=== PATIENT | female | born 1995 | race Caucasian/White ===

== ENCOUNTER 2022-01-24 17:30 | Outpatient (CLI) | payer OTHER ==
[~2022-01-24] VITALS: Ht 167.6 cm; Wt 72.5 kg
[2022-01-24] MEDS ORDERED: PRENTAB9 PO (18:02)
[2022-01-24] MEDS ORDERED: IRON325T9 PO (18:02)
[2022-01-24] MEDS ORDERED: CALC-265 PO (18:02)
[2022-01-24] MEDS ORDERED: PROZ20CA11 PO (18:02)
[2022-01-24] MEDS ORDERED: xyzal PO (18:02)
[2022-01-24] MEDS ORDERED: HOME MED LIST COMPLETE! XX SCH (18:05)
[2022-01-24 18:17] VITALS: BP 106/64
[2022-01-24 19:09] VITALS: BP 113/76
== END 2022-01-24 19:08 | disposition home or self-care (01) ==
LOC: M LDO 17:30
PROVIDERS: ATTEND Specialist
DX: O26.892 Other specified pregnancy related conditions, second trimester (principal); R04.0 Epistaxis; O99.342 Other mental disorders complicating pregnancy, second trimester; F41.9 Anxiety disorder, unspecified; Z3A.24 24 weeks gestation of pregnancy
CPT/HCPCS: 59025; G0378; G0463

== ENCOUNTER 2022-02-17 17:56 | Outpatient (CLI) | payer OTHER ==
[~2022-02-17] VITALS: Ht 167.6 cm; Wt 71.0 kg
[~2022-02-17 17:56] MED LIST: CALC-265 PO; IRON325T9 PO; PRENTAB9 PO; PROZ20CA11 PO; xyzal PO
[2022-02-17 18:13] VITALS: BP 118/67
[2022-02-17 18:18] VITALS: BP 115/66
[2022-02-17] MEDS ORDERED: FERR325T3 PO (18:18)
[2022-02-17] MEDS ORDERED: PRENTAB9 PO (18:18)
[2022-02-17] MEDS ORDERED: MORPHINE 4 MG/ML 1ML VIAL/SYRINGE IV ONE ×2 (18:35→20:45)
[2022-02-17] MEDS ORDERED: ONDANSETRON 4MG/2ML VIAL IV PRN (18:35)
[2022-02-17] MEDS ORDERED: LR 1,000 ML IV SCH (18:35)
[2022-02-17] MEDS ORDERED: LACTATED RINGER'S 1000 ML IV ONE (18:35)
[2022-02-17 19:03] LABS: HEMATOCRIT 35.5 % (36.0-47.0); HEMOGLOBIN 11.5 g/dl (12.0-15.5); MEAN CORPUSCULAR HEMOGLOBIN 27.5 pg (27.0-33.0); MEAN CORPUSCULAR HGB CONC 32.4 g/dl (32.0-36.5); MEAN CORPUSCULAR VOLUME 84.9 fl (80.0-96.0); PLATELET COUNT, AUTOMATED 317 10^3/uL (150-450); RED BLOOD COUNT 4.18 10^6/uL (4.00-5.40)
[2022-02-17 19:14] LABS: AMORPHOUS SEDIMENT SMALL (NEGATIVE); APPEARANCE, URINE TURBID (CLEAR); BACTERIA, URINE AUTO NEGATIVE (NEGATIVE); BILIRUBIN, URINE AUTO NEGATIVE (NEGATIVE); BLOOD, URINE BLOOD NEGATIVE (NEGATIVE); COLOR, URINE AMBER (YELLOW); GLUCOSE, URINE (UA) AUTO NEGATIVE (NEGATIVE); KETONE, URINE AUTO 1+ mg/dL (NEGATIVE); LEUKOCYTE ESTERASE, URINE AUTO NEGATIVE (NEGATIVE); MUCUS, URINE SMALL (NEGATIVE); NITRITE, URINE AUTO NEGATIVE (NEGATIVE); PROTEIN, URINE AUTO 1+ mg/dL (NEGATIVE); RBC, URINE AUTO 3 /HPF (0-3); SPECIFIC GRAVITY URINE AUTO 1.016 (1.002-1.035); SQUAMOUS EPITHELIAL CELL UR AU 2 /HPF (0-6); UROBILINOGEN, URINE AUTO 0.2 mg/dL (0.0-2.0); WBC, URINE AUTO 3 /HPF (0-3)
[2022-02-17 19:37] LABS: ALBUMIN 3.2 GM/DL (3.2-5.2); BLOOD UREA NITROGEN 7 MG/DL (7-18); CALCIUM LEVEL 10.7 MG/DL (8.5-10.1); CARBON DIOXIDE LEVEL 27 MEQ/L (21-32); CHLORIDE LEVEL 104 MEQ/L (98-107); CREATININE FOR GFR 0.62 MG/DL (0.55-1.30); GLOMERULAR FILTRATION RATE > 60.0 (>60); GLUCOSE, FASTING 94 MG/DL (70-100); PHOSPHORUS LEVEL 3.8 MG/DL (2.5-4.9); SODIUM LEVEL 141 MEQ/L (136-145)
[2022-02-17 20:00] VITALS: BP 138/80
[2022-02-17] MEDS ORDERED: PROMETHAZINE 25MG/ML 1ML VIAL IV ONE (20:50)
[2022-02-17] MEDS ORDERED: MORPHINE 10 MG/ML 1ML VIAL SC ONE (20:50)
[2022-02-17] MEDS ORDERED: NS 1,000 ML IV SCH (20:55)
[2022-02-17] MEDS ORDERED: cefTRIAXone SOD 1 GM in D5W MINI-BAG PLUS 50 ML IV SCH (21:00)
[2022-02-17 21:13] VITALS: BP 109/55
[2022-02-18 02:29] VITALS: BP 140/67
[2022-02-18 05:45] VITALS: BP 115/55
[2022-02-18 07:31] LABS: HEMATOCRIT 32.4 % (36.0-47.0); HEMOGLOBIN 10.4 g/dl (12.0-15.5); MEAN CORPUSCULAR HEMOGLOBIN 27.2 pg (27.0-33.0); MEAN CORPUSCULAR HGB CONC 32.1 g/dl (32.0-36.5); MEAN CORPUSCULAR VOLUME 84.6 fl (80.0-96.0); PLATELET COUNT, AUTOMATED 309 10^3/uL (150-450); RED BLOOD COUNT 3.83 10^6/uL (4.00-5.40)
== END 2022-02-18 08:00 | disposition home or self-care (01) ==
LOC: M LDO 17:56
PROVIDERS: ATTEND Advanced Practice Midwife
DX: O26.893 Other specified pregnancy related conditions, third trimester (principal); O21.8 Other vomiting complicating pregnancy; R10.31 Right lower quadrant pain; M54.50 Low back pain, unspecified; N20.0 Calculus of kidney; Z3A.30 30 weeks gestation of pregnancy
CPT/HCPCS: 36415; 59025; 76775; 76815; 80069; 81001; 85027; 87086; 96374; 96375; 96376; G0378; G0463; J0696; J2270; J2405; J2550

== ENCOUNTER 2022-04-12 21:14 | Inpatient (IN) | payer OTHER ==
[~2022-04-12] VITALS: Ht 167.6 cm; Wt 82.7 kg
[~2022-04-12 21:14] MED LIST changes: +FERR325T3 PO
[2022-04-12 21:23] VITALS: BP 138/92
[2022-04-12] MEDS ORDERED: HOME MED LIST COMPLETE! XX SCH (23:10)
[2022-04-12 23:43] VITALS: BP 136/82
[2022-04-12] MEDS ORDERED: PENICILLIN G POTASSIUM IV 5 MU in D5W MINI-BAG PLUS 100 ML IV STA (23:52)
[2022-04-13] VITALS (26 sets, daily range): BP systolic 94–130; BP diastolic 57–84
[2022-04-13] MEDS ORDERED: CARBOPROST TROMETHAMINE 250 MCG/ML AMP IM PRN (01:45)
[2022-04-13] MEDS ORDERED: LIDOCAINE 1% MDV 20ML VIAL INFIL PRN (01:45)
[2022-04-13] MEDS ORDERED: OXYTOCIN INJ 10 UNITS/ML VIAL (J2590) IM PRN (01:45)
[2022-04-13] MEDS ORDERED: LACTATED RINGER'S 1000 ML IV STA (01:45)
[2022-04-13] MEDS ORDERED: TRANEXAMIC ACID INJection 1,000 MG in NS 100 ML IV PRN (01:45)
[2022-04-13] MEDS ORDERED: OXYTOCIN DRIP 30 UNITS in IV 1 EA IV PRN (01:45)
[2022-04-13] MEDS ORDERED: METHYLERGONOVINE MALEATE 0.2 MG/ML VIAL (J2210) IM PRN (01:45)
[2022-04-13 01:55] LABS: HEMATOCRIT 33.1 % (36.0-47.0); HEMOGLOBIN 10.5 g/dl (12.0-15.5); MEAN CORPUSCULAR HEMOGLOBIN 25.9 pg (27.0-33.0); MEAN CORPUSCULAR HGB CONC 31.7 g/dl (32.0-36.5); MEAN CORPUSCULAR VOLUME 81.5 fl (80.0-96.0); PLATELET COUNT, AUTOMATED 291 10^3/uL (150-450); RED BLOOD COUNT 4.06 10^6/uL (4.00-5.40); WHITE BLOOD COUNT 14.8 10^3/uL (4.0-10.0)
[2022-04-13] MEDS ORDERED: FENTANYL 2MCG/ML ROPIVACAINE 0.2% IN 0.9% NACL 100ML IVBAG As Ordered ONE (02:41)
[2022-04-13] MEDS ORDERED: NALOXONE INJ 0.4MG/1ML VIAL (J2310 PER 1MG) IV PRN (04:10)
[2022-04-13] MEDS ORDERED: EPIDURAL/PCA KEYS XX PRN (04:10)
[2022-04-13] MEDS ORDERED: diphenhydrAMINE 50MG/ML VIAL (J1200) IV PRN (04:10)
[2022-04-13] MEDS ORDERED: ePHEDrine SULFATE 25 MG/5 ML(5MG/ML) SYRINGE As Ordered ONE (04:10)
[2022-04-13] MEDS ORDERED: ONDANSETRON 4MG 2ML VIAL IV PRN (04:10)
[2022-04-13] MEDS ORDERED: LR 500 ML IV PRN (04:10)
[2022-04-13] MEDS ORDERED: ePHEDrine SULFATE 25 MG/5 ML(5MG/ML) SYRINGE IVP PRN ×2 (04:10→11:40)
[2022-04-13] MEDS: FENTANYL/ROPIVACAINE/NACL BAG 100 ML EPIDURAL SCH ×2 (04:23→11:56)
[2022-04-13] MEDS ORDERED: PENICILLIN G POTASSIUM IV 2.5 MU in IV 1 EA IV SCH (04:30)
[2022-04-13] MEDS: LR 1,000 ML IV SCH ×2 (07:06→10:55)
[2022-04-13] MEDS ORDERED: OXYTOCIN DRIP 30 UNITS in IV 1 EA IV SCH (07:55)
[2022-04-13] MEDS ORDERED: ACETAMINOPHEN 500 MG TAB PO PRN (15:45)
[2022-04-13] MEDS ORDERED: LIDOCAINE 1% MDV 20ML VIAL INFIL ONE (15:45)
[2022-04-13] MEDS ORDERED: ACETAMINOPHEN TAB 650MG DOSE (2X325MG) PO PRN (15:45)
[2022-04-13] MEDS ORDERED: IBUPROFEN 600MG TAB PO PRN (15:45)
[2022-04-13] MEDS ORDERED: RHOGAM 300 MCG (1500 IU) INJ (J2790) IM SCH (15:45)
[2022-04-13] MEDS ORDERED: OXYTOCIN DRIP 30 UNITS in IV 1 EA IV ONE (15:45)
[2022-04-13] MEDS ORDERED: DOCUSATE SODIUM 100MG CAPSULE PO PRN (15:45)
[2022-04-13] MEDS ORDERED: METHYLERGONOVINE MALEATE 0.2 MG TAB PO PRN (15:45)
[2022-04-13] MEDS ORDERED: DIBUCAINE 1% OINTMENT 30GM TOP PRN (15:45)
[2022-04-14] MEDS: IBUPROFEN 800 MG TAB PO PRN ×3 (00:42→21:05)
[2022-04-14 06:00] VITALS: BP 122/58
[2022-04-14] MEDS: PRENATAL VITAMINS CHEWABLE TABLET PO SCH (09:08)
[2022-04-14] MEDS: FLUoxetine 20MG CAP PO SCH (13:11)
[2022-04-14 18:00] VITALS: BP 122/73
[2022-04-15 06:00] VITALS: BP 120/70
[2022-04-15 07:10] VITALS: BP 120/70
[2022-04-15] MEDS: FLUoxetine 20MG CAP PO SCH (07:47)
[2022-04-15] MEDS: PRENATAL VITAMINS CHEWABLE TABLET PO SCH (07:47)
[2022-04-15] MEDS: IBUPROFEN 800 MG TAB PO PRN ×2 (07:48→16:29)
[2022-04-15] MEDS ORDERED: MEASLES,MUMPS,RUBELLA VACCINE INJ (MMR-II) (90707) SC.IMMUN ONE (09:00)
[2022-04-15] MEDS ORDERED: COLA100C5 PO (09:31)
[2022-04-15] MEDS ORDERED: ACET-683 PO (09:31)
[2022-04-15] MEDS ORDERED: IBUP-1022 PO (09:31)
== END 2022-04-15 18:35 | disposition home or self-care (01) | DRG 807 ==
LOC: M LDO 21:14 → M LDI 04-13 01:53 → M OBS 04-13 18:01
PROVIDERS: ADMIT Advanced Practice Midwife; ATTEND Advanced Practice Midwife
PROC: 10E0XZZ Delivery of Products of Conception, External Approach (ICD-10-PCS; principal; 2022-04-13)
PROC: 0KQM0ZZ Repair Perineum Muscle, Open Approach (ICD-10-PCS; 2022-04-13)
DX: O70.1 Second degree perineal laceration during delivery (principal); Z37.0 Single live birth; Z3A.38 38 weeks gestation of pregnancy

== ENCOUNTER 2022-04-17 15:21 | Emergency (ER) | payer OTHER ==
[~2022-04-17] VITALS: Ht 167.6 cm; Wt 75.6 kg
[~2022-04-17 15:21] MED LIST changes: +ACET-683 PO; +COLA100C5 PO; +IBUP-1022 PO
[2022-04-17 17:36] VITALS: BP 135/77
== END 2022-04-17 17:37 | disposition home or self-care (01) ==
LOC: M ED 15:21
DX: Z48.01 Encounter for change or removal of surgical wound dressing (principal); R10.2 Pelvic and perineal pain; F41.9 Anxiety disorder, unspecified; Z79.899 Other long term (current) drug therapy

== ENCOUNTER 2023-01-05 13:02 | Inpatient (IN) | payer OTHER ==
[2023-01-05] MEDS ORDERED: CETI-24 PO (14:49)
[2023-01-05] MEDS ORDERED: FLUO20CA22 PO (14:49)
[2023-01-05] MEDS ORDERED: LITH150C PO (14:49)
[2023-01-05] MEDS ORDERED: HOME MED LIST COMPLETE! XX SCH (14:55)
[2023-01-05] MEDS ORDERED: CETIRIZINE (ZyrTEC) 10 MG TAB PO PRN (15:10)
[2023-01-05] MEDS ORDERED: traZODone 50 MG TAB PO PRN (15:10)
[2023-01-05] MEDS ORDERED: OLANZapine ORAL DISINTEGRATING TAB 5MG PO PRN (15:10)
[2023-01-05] MEDS ORDERED: diphenhydrAMINE 25MG CAP PO PRN (15:10)
[2023-01-05] MEDS ORDERED: MOM 30ML SUSPENSION UDC PO PRN (15:10)
[2023-01-05] MEDS ORDERED: MAALOX 30 ML SUSP *UDC PO PRN (15:10)
[2023-01-05] MEDS: FLUoxetine 20MG CAP PO SCH (18:09)
[2023-01-05] MEDS: LITHIUM CARBONATE 150 MG CAP PO SCH (20:18)
[2023-01-06 06:06] VITALS: BP 100/60
[2023-01-06] MEDS: FLUoxetine 20MG CAP PO SCH (08:27)
[2023-01-06] MEDS: NICOTINE 21MG/24HR 1 EA TRANSDERMAL TD PRN (11:46)
[2023-01-06 17:44] VITALS: BP 123/75
[2023-01-06] MEDS: LITHIUM CARBONATE 150 MG CAP PO SCH (20:19)
[2023-01-07 06:41] VITALS: BP 109/59
[2023-01-07] MEDS: FLUoxetine 20MG CAP PO SCH (08:18)
[2023-01-07] MEDS: NICOTINE 21MG/24HR 1 EA TRANSDERMAL TD PRN (11:20)
[2023-01-07 16:12] VITALS: BP 111/63
[2023-01-07] MEDS: LITHIUM CARBONATE 150 MG CAP PO SCH (20:20)
[2023-01-07] MEDS ORDERED: OLANZapine 5 MG TAB PO SCH (21:00)
[2023-01-07] MEDS: OLANZapine 2.5MG TABLET PO SCH (23:46)
[2023-01-08 06:24] VITALS: BP 133/62
[2023-01-08] MEDS ORDERED: IBUPROFEN 400MG TAB PO PRN (08:30)
[2023-01-08] MEDS: FLUoxetine 20MG CAP PO SCH (08:34)
[2023-01-08] MEDS: NICOTINE 21MG/24HR 1 EA TRANSDERMAL TD SCH (09:11)
[2023-01-08 16:09] VITALS: BP 118/60
[2023-01-08] MEDS: LITHIUM CARBONATE 150 MG CAP PO SCH (20:42)
[2023-01-08] MEDS: OLANZapine 2.5MG TABLET PO SCH (23:43)
[2023-01-09 06:12] VITALS: BP 144/88
[2023-01-09] MEDS: FLUoxetine 20MG CAP PO SCH (08:27)
[2023-01-09] MEDS: NICOTINE 21MG/24HR 1 EA TRANSDERMAL TD SCH (08:27)
[2023-01-09 15:41] VITALS: BP 129/74
[2023-01-09] MEDS: LITHIUM CARBONATE 150 MG CAP PO SCH (20:07)
[2023-01-09] MEDS: OLANZapine 2.5MG TABLET PO SCH (21:43)
[2023-01-10 06:13] VITALS: BP 108/60
[2023-01-10] MEDS: FLUoxetine 20MG CAP PO SCH (09:23)
[2023-01-10] MEDS: NICOTINE 21MG/24HR 1 EA TRANSDERMAL TD SCH (09:25)
[2023-01-10] MEDS: LITHIUM CARBONATE 150 MG CAP PO SCH (20:30)
[2023-01-10] MEDS: OLANZapine 2.5MG TABLET PO SCH (22:17)
[2023-01-11 06:22] VITALS: BP 121/59
[2023-01-11] MEDS: FLUoxetine 20MG CAP PO SCH (08:49)
[2023-01-11] MEDS: NICOTINE 21MG/24HR 1 EA TRANSDERMAL TD SCH (08:50)
[2023-01-11] MEDS ORDERED: OLAN2.5T25 PO (12:28)
== END 2023-01-11 15:06 | disposition home or self-care (01) | DRG 881 ==
LOC: M ED 13:02 → M ED INP 15:10 → M PSY 16:56
PROVIDERS: ADMIT Psychiatry & Neurology Psychiatry; ATTEND Psychiatry & Neurology Psychiatry
DX: F53.0 Postpartum depression (principal); R45.851 Suicidal ideations; Z88.6 Allergy status to analgesic agent; Z79.899 Other long term (current) drug therapy; F12.90 Cannabis use, unspecified, uncomplicated; F17.290 Nicotine dependence, other tobacco product, uncomplicated; F41.9 Anxiety disorder, unspecified; F60.3 Borderline personality disorder; F90.9 Attention-deficit hyperactivity disorder, unspecified type

== ENCOUNTER 2023-01-18 12:18 | Inpatient (IN) | payer OTHER ==
[~2023-01-18] VITALS: Ht 167.6 cm; Wt 74.5 kg
[~2023-01-18 12:18] MED LIST changes: +CETI-24 PO; +FLUO20CA22 PO; +LITH150C PO; +OLAN2.5T25 PO
[2023-01-18 13:38] LABS: HEMATOCRIT 38.8 % (36.0-47.0); HEMOGLOBIN 12.6 g/dl (12.0-15.5); MEAN CORPUSCULAR HEMOGLOBIN 27.4 pg (27.0-33.0); MEAN CORPUSCULAR HGB CONC 32.5 g/dl (32.0-36.5); MEAN CORPUSCULAR VOLUME 84.3 fl (80.0-96.0); PLATELET COUNT, AUTOMATED 307 10^3/uL (150-450); WHITE BLOOD COUNT 8.3 10^3/uL (4.0-10.0)
[2023-01-18 13:54] LABS: PHENCYCLIDINE URINE NEGATIVE (NEGATIVE)
[2023-01-18 13:55] LABS: AMPHETAMINES LEVEL URINE NEGATIVE (NEGATIVE); BARBITURATES URINE NEGATIVE (NEGATIVE); BENZODIAZEPINES URINE NEGATIVE (NEGATIVE); COCAINE METABOLITE URINE NEGATIVE (NEGATIVE); METHADONE URINE NEGATIVE (NEGATIVE); OPIATES URINE NEGATIVE (NEGATIVE)
[2023-01-18 13:56] LABS: ETHYL ALCOHOL (ETHANOL) < 0.003 % (0.000-0.010)
[2023-01-18 13:57] LABS: ACETAMINOPHEN LEVEL < 2.0 UG/ML (10.0-20.0)
[2023-01-18 13:58] LABS: ALBUMIN 3.9 G/DL (3.2-5.2); ALKALINE PHOSPHATASE 140 U/L (46-116); ALT/SGPT 13 U/L (7.0-40); AST/SGOT 15 U/L (<34); BILIRUBIN,DIRECT 0.2 MG/DL (<0.4); BILIRUBIN,TOTAL 0.5 MG/DL (0.3-1.2); BLOOD UREA NITROGEN 9 MG/DL (9-23); CANNABINOIDS URINE POSITIVE (NEGATIVE); CARBON DIOXIDE LEVEL 25 MMOL/L (20-31); CHLORIDE LEVEL 107 MMOL/L (98-107); CREATININE FOR GFR 0.53 MG/DL (0.55-1.30); GLOMERULAR FILTRATION RATE > 60.0 (>60); GLUCOSE, FASTING 91 MG/DL (60-100); POTASSIUM SERUM 4.1 MMOL/L (3.5-5.1); SALICYLATE LEVEL < 3.0 MG/DL (<30); SODIUM LEVEL 139 MMOL/L (136-145); TOTAL PROTEIN 6.7 G/DL (5.7-8.2)
[2023-01-18 14:00] LABS: THYROID STIMULATING HORMONE 1.064 uIU/ML (0.55-4.78)
[2023-01-18] MEDS ORDERED: LORazepam 2 MG TAB PO STA (14:05)
[2023-01-18 14:17] LABS: HCG, SERUM QUALITATIVE NEGATIVE (NEGATIVE)
[2023-01-18 15:22] LABS: LITHIUM LEVEL < 0.20 MMOL/L (0.60-1.20)
[2023-01-18] MEDS ORDERED: OLAN2.5T25 PO (19:17)
[2023-01-18] MEDS ORDERED: HOME MED LIST COMPLETE! XX SCH (19:20)
[2023-01-18] MEDS ORDERED: MOM 30ML SUSPENSION UDC PO PRN (23:55)
[2023-01-18] MEDS ORDERED: MAALOX 30 ML SUSP *UDC PO PRN (23:55)
[2023-01-18] MEDS ORDERED: OLANZapine ORAL DISINTEGRATING TAB 5MG PO PRN (23:55)
[2023-01-18] MEDS ORDERED: CETIRIZINE (ZyrTEC) 10 MG TAB PO PRN (23:55)
[2023-01-18] MEDS ORDERED: traZODone 50 MG TAB PO PRN (23:55)
[2023-01-19 01:23] VITALS: BP 142/69
[2023-01-19] MEDS: FLUoxetine 20MG CAP PO SCH (07:51)
[2023-01-19] MEDS: NICOTINE 21MG/24HR 1 EA TRANSDERMAL TD PRN (07:52)
[2023-01-19 16:18] VITALS: BP 133/81
[2023-01-19] MEDS: LITHIUM CARBONATE 600MG CAP PO SCH (20:07)
[2023-01-19] MEDS ORDERED: LITHIUM CARBONATE 300 MG CAP PO SCH (21:00)
[2023-01-19] MEDS: OLANZapine 2.5MG TABLET PO SCH (21:40)
[2023-01-20 05:39] VITALS: BP 110/57
[2023-01-20 07:17] LABS: CHOLESTEROL RISK RATIO 2.17 (<5); HDL CHOLESTEROL 64.5 MG/DL (>40); LDL CHOLESTEROL 62.7 MG/DL (<100); NON-HDL-C 75.5 MG/DL
[2023-01-20] MEDS: FLUoxetine 20MG CAP PO SCH (08:59)
[2023-01-20] MEDS: NICOTINE 21MG/24HR 1 EA TRANSDERMAL TD PRN (08:59)
[2023-01-20 18:07] VITALS: BP 116/60
[2023-01-20] MEDS: LITHIUM CARBONATE 600MG CAP PO SCH (19:56)
[2023-01-20] MEDS: OLANZapine 2.5MG TABLET PO SCH (21:44)
[2023-01-21 07:06] VITALS: BP 119/67
[2023-01-21] MEDS ORDERED: LITH600C PO (07:09)
[2023-01-21] MEDS ORDERED: OLAN2.5T25 PO (07:09)
[2023-01-21] MEDS ORDERED: FLUO20CA22 PO (07:09)
[2023-01-21] MEDS ORDERED: NICO21PAT TD (07:09)
[2023-01-21] MEDS: FLUoxetine 20MG CAP PO SCH (08:24)
[2023-01-21] MEDS: NICOTINE 21MG/24HR 1 EA TRANSDERMAL TD PRN (08:25)
== END 2023-01-21 12:00 | disposition home or self-care (01) | DRG 885 ==
LOC: M ED 12:18 → M ED INP 19:53 → M PSY 01-19 00:57
PROVIDERS: ADMIT Psychiatry & Neurology Psychiatry; ATTEND Student in an Organized Health Care Education/Training Program
DX: F31.9 Bipolar disorder, unspecified (principal); R45.851 Suicidal ideations; F90.9 Attention-deficit hyperactivity disorder, unspecified type; F43.10 Post-traumatic stress disorder, unspecified; F60.3 Borderline personality disorder; Z88.6 Allergy status to analgesic agent; F17.200 Nicotine dependence, unspecified, uncomplicated; Z79.899 Other long term (current) drug therapy

== ENCOUNTER → 2023-03-17 | Outpatient (REF) | payer OTHER ==
[~2023-03-17] MED LIST changes: +LITH600C PO; +NICO21PAT TD
== END ==
LOC: M LAB REF 16:15
PROVIDERS: ATTEND Nurse Practitioner Family
DX: J02.9 Acute pharyngitis, unspecified (principal)

== ENCOUNTER 2024-12-11 08:36 | Day surgery (SDC) | payer OTHER ==
[~2024-12-11] VITALS: Ht 167.6 cm; Wt 56.3 kg
[~2024-12-11 08:36] MED LIST changes: +FERR325T14 PO; +FLUO-365 PO; -FLUO20CA22 PO; -IRON325T9 PO; +LR 1,000 ML IV SCH; -OLAN2.5T25 PO; +OLAN2.5T53 PO
[2024-12-11] MEDS ORDERED: LR 1,000 ML IV SCH (08:45)
[2024-12-11 09:17] LABS: HEMATOCRIT 38.7 % (36.0-47.0); MEAN CORPUSCULAR HEMOGLOBIN 28.9 pg (27.0-33.0); MEAN CORPUSCULAR HGB CONC 33.6 g/dl (32.0-36.5); PLATELET COUNT, AUTOMATED 305 10^3/uL (150-450); WHITE BLOOD COUNT 5.5 10^3/uL (4.0-10.0)
[2024-12-11] MEDS ORDERED: SCOPOLAMINE 1MG TRANSDERMAL PATCH TOP ONE (11:10)
[2024-12-11] MEDS ORDERED: SCOPOLAMINE 1MG TRANSDERMAL PATCH As Ordered ONE (11:18)
[2024-12-11] MEDS ORDERED: ROCURONIUM BROMIDE 50MG/5ML VIAL As Ordered ONE (11:20)
[2024-12-11] MEDS ORDERED: SUGAMMADEX SODIUM 500 MG/5 ML VIAL (BRIDION) As Ordered ONE (11:20)
[2024-12-11] MEDS ORDERED: fentaNYL 100 MCG/2 ML INJECTION As Ordered ONE (11:20)
[2024-12-11] MEDS ORDERED: ONDANSETRON 4MG 2ML VIAL As Ordered ONE (11:20)
[2024-12-11] MEDS ORDERED: KETOROLAC 30 MG/ML 1ML VIAL As Ordered ONE (11:20)
[2024-12-11] MEDS ORDERED: MIDAZOLAM INJ 2MG/2ML VIAL As Ordered ONE (11:20)
[2024-12-11] MEDS ORDERED: LIDOCAINE 2% 100MG/5ML SDV (FOR ANES.) As Ordered ONE (11:20)
[2024-12-11] MEDS ORDERED: propofoL 200 MG/20 ML VIAL As Ordered ONE (11:20)
[2024-12-11] MEDS ORDERED: METOCLOPRAMIDE INJ 10MG/2ML VIAL As Ordered ONE (11:20)
[2024-12-11] MEDS ORDERED: dexmedeTOMIDine (4MCG/ML)200MCG/50ML BTL (PRECEDEX) As Ordered ONE (11:34)
[2024-12-11] MEDS ORDERED: PHENYLephrine 500MCG 5ML (100MCG/ML) SYRINGE As Ordered ONE (11:41)
[2024-12-11] MEDS ORDERED: IBUP80TA PO (12:31)
[2024-12-11] MEDS ORDERED: COLA100C5 PO (12:31)
[2024-12-11] MEDS ORDERED: OXYC-517 PO (12:32)
[2024-12-11] MEDS ORDERED: HYDROMORPHONE HCL 0.5 MG/ 0.5 ML SYRINGE IV PRN (12:40)
[2024-12-11] MEDS ORDERED: fentaNYL 100 MCG/2 ML INJECTION IV PRN (12:40)
[2024-12-11] MEDS: ONDANSETRON 4MG 2ML VIAL IV PRN (12:48)
[2024-12-11] MEDS: oxyCODONE 5MG TAB PO PRN (12:49)
[2024-12-11 13:58] VITALS: BP 115/62; TEMP 97.5; O2SAT 99
== END 2024-12-11 14:01 | disposition home or self-care (01) ==
LOC: M SDC 08:36
PROVIDERS: ATTEND Obstetrics & Gynecology
DX: Z30.2 Encounter for sterilization (principal); F17.200 Nicotine dependence, unspecified, uncomplicated; K21.9 Gastro-esophageal reflux disease without esophagitis; F41.9 Anxiety disorder, unspecified; F32.A Depression, unspecified; F90.9 Attention-deficit hyperactivity disorder, unspecified type; Z79.899 Other long term (current) drug therapy; Z88.8 Allergy status to other drugs, medicaments and biological substances; J30.2 Other seasonal allergic rhinitis
CPT/HCPCS: 36415; 58661; 81025; 85027; 86850; 86900; 86901; 88302; J0665; J1100; J1885; J2250; J2371; J2405; J2765; J3010